=== PATIENT | male | born 1960 | race Caucasian/White ===

== ENCOUNTER 2023-10-09 06:15 | Day surgery (SDC) | payer BC ==
[~2023-10-09 06:15] MED LIST: Lactated Ringers 1,000 ML IV SCH; Sodium Chloride 0.9% 10 ML Syringe FLUSH PRN
[2023-10-09] MEDS ORDERED: Lidocaine 2% 100 MG/5 ML Syringe IVPUSH ONE (06:16)
[2023-10-09] MEDS ORDERED: Propofol 200 MG/20 ML SDV IV ONE (06:16)
[2023-10-09] MEDS ORDERED: Simethicone Drops 40 MG/0.6 ML 30 ML Bottle ONE (07:07)
== END 2023-10-09 09:03 | disposition home or self-care (01) ==
LOC: FB.SDS 06:15
PROVIDERS: ATTEND Surgery
DX: Z12.11 Encounter for screening for malignant neoplasm of colon (principal); D12.0 Benign neoplasm of cecum; K62.1 Rectal polyp; K62.89 Other specified diseases of anus and rectum; K57.30 Diverticulosis of large intestine without perforation or abscess without bleeding; K21.9 Gastro-esophageal reflux disease without esophagitis; I10 Essential (primary) hypertension; E78.5 Hyperlipidemia, unspecified; Z79.82 Long term (current) use of aspirin; Z79.899 Other long term (current) drug therapy; Z88.0 Allergy status to penicillin
CPT/HCPCS: 00811; 88305; A9270-GY; J2704; J7120